=== PATIENT | female | born 1935 | race Caucasian/White ===

== ENCOUNTER 2016-07-20 10:04 | Inpatient (IN) | payer MEDICARE, BC ==
[2016-07-20 07:41] VITALS: BMI 24.4
[2016-07-20] MEDS ORDERED: SODIUM CHLORIDE 0.9% 500 ML IV STA (10:17)
[2016-07-20] MEDS: SODIUM CHLORIDE 0.9% 1,000 ML IV STA (10:20)
--- NOTE | 2016-07-20 10:25 | ED ---
Recheck HPI - General Chief Complaint: Recheck/Abnormal Lab/Rx Time Seen by Provider: 07/20/16 10:04 Source: patient, family, RN/MD, RN notes reviewed Mode of arrival: wheelchair Limitations: no limitations - History of Present Illness Initial Comments: This is a 81-year-old female who had a breast biopsy done this morning. Apparently she experienced some bleeding afterwards. The staff at the outpatient surgery portion of the hospital cannot get the bleeding controlled she was brought to the emergency department for further evaluation. Patient does have a small amount was infiltrated rate breast site. There is some evidence of a hematoma below the wound site. Patient does appear somewhat pale. She has any chest pain or shortness of breath at this time she apparently did have some pain during the procedure. - Related Data Home Medications Medication Instructions Recorded Confirmed Pravastatin Sodium [Pravachol] 20 mg PO HS 11/15/15 07/20/16 Biotin 5 mg PO DAILY 07/20/16 07/20/16 Calcium Citrate/Vitamin D3 1 tab PO DAILY 07/20/16 07/20/16 [Calcitrate + Vit D Caplet] Evening [place] Oil 500 mg PO DAILY 07/20/16 07/20/16 Allergies Allergy/AdvReac Type Severity Reaction Status Date / Time codeine Allergy Unknown Verified 07/20/16 10:26 Iodinated Contrast Media - Allergy TONGUE Verified 07/20/16 10:26 Oral and SWELLING [Iodinated Contrast Media - IV Dye] Review of Systems ROS Statement: Those systems with pertinent positive or pertinent negative responses have been documented in the HPI. ROS Other: All systems not noted in ROS Statement are negative. Past Medical History Past Medical History: Hyperlipidemia, Thyroid Disorder History of Any Multi-Drug Resistant Organisms: None Reported Past Surgical History: Joint Replacement Additional Past Surgical History / Comment(s): bilateral knee replacement, thyroid biopsy,RT breast biopsy age 29, RIght breast biopsy 07/20/16 Past Anesthesia/Blood Transfusion Reactions: No Reported Reaction Past Psychological History: No Psychological Hx Reported Smoking Status: Never smoker Past Alcohol Use History: None Reported Past Drug Use History: None Reported General Exam - General Exam Comments Initial Comments: This is a well up well-nourished awake alert oriented 3 female Limitations: no limitations General appearance: alert, in no apparent distress Head exam: Present: atraumatic, normocephalic, normal inspection Eye exam: Present: normal appearance, PERRL, EOMI. Absent: scleral icterus, conjunctival injection, periorbital swelling ENT exam: Present: normal exam, mucous membranes moist Neck exam: Present: normal inspection. Absent: tenderness, meningismus, lymphadenopathy Respiratory exam: Present: normal lung sounds bilaterally, other (The right breast does have a biopsy site in her right upper medial quadrant some evidence of a hematoma below. Bleeding is controlled with pressure at this time. The breast appears to be without any active bleeding.). Absent: respiratory distress, wheezes, rales, rhonchi, stridor Cardiovascular Exam: Present: regular rate, normal rhythm, normal heart sounds. Absent: systolic murmur, diastolic murmur, rubs, gallop, clicks GI/Abdominal exam: Present: soft, normal bowel sounds. Absent: distended, tenderness, guarding, rebound, rigid Extremities exam: Present: normal inspection, full ROM, normal capillary refill. Absent: tenderness, pedal edema, joint swelling, calf tenderness Back exam: Present: normal inspection Neurological exam: Present: alert, oriented X3, CN II-XII intact Psychiatric exam: Present: normal affect, anxious Skin exam: Present: warm, dry, pallor. Absent: rash Course Vital Signs 07/20/16 07/20/16 07/20/16 07:30 10:10 10:28 Temperature 98.5 F 98.5 F Pulse Rate 92 79 Pulse Rate [ 65 Right Sitting] Respiratory 16 16 16 Rate Blood Pressure 99/55 108/57 Blood Pressure 157/80 [Right Arm Sitting] O2 Sat by Pulse 93 L 97 Oximetry 07/20/16 07/20/16 11:17 12:13 Temperature Pulse Rate 80 81 Pulse Rate [ Right Sitting] Respiratory 18 18 Rate Blood Pressure 95/49 93/84 Blood Pressure [Right Arm Sitting] O2 Sat by Pulse 99 98 Oximetry Medical Decision Making - Medical Decision Making Patient was reevaluated on multiple occasions. She is feeling improved her blood pressure is improved. Repeat CBC does show a decrease in hemoglobin. Patient will be admitted for observation and reevaluation of hemoglobin. The hematoma appears was stabilized in the right breast. The upper quadrants are soft rhythm original presentation - Lab Data Result diagrams: 07/20/16 12:57 07/20/16 10:10 Lab Results 07/20/16 07/20/16 07/20/16 Range/Units 10:10 10:10 10:10 WBC 10.3 (3.8-10.6) k/uL RBC 4.04 (3.80-5.40) m/uL Hgb 11.9 (11.4-16.0) gm/dL Hct 35.7 (34.0-46.0) % MCV 88.3 (80.0-100.0) fL MCH 29.4 (25.0-35.0) pg MCHC 33.3 (31.0-37.0) g/dL RDW 14.0 (11.5-15.5) % Plt Count 267 (150-450) k/uL Neutrophils % 50 % Lymphocytes % 40 % Monocytes % 5 % Eosinophils % 2 % Basophils % 0 % Neutrophils # 5.2 (1.3-7.7) k/uL Lymphocytes # 4.2 (1.0-4.8) k/uL Monocytes # 0.5 (0-1.0) k/uL Eosinophils # 0.2 (0-0.7) k/uL Basophils # 0.0 (0-0.2) k/uL Sodium 141 (137-145) mmol/L Potassium 4.1 (3.5-5.1) mmol/L Chloride 106 (98-107) mmol/L Carbon Dioxide 25 (22-30) mmol/L Anion Gap 10 mmol/L BUN 15 (7-17) mg/dL Creatinine 0.59 (0.52-1.04) mg/dL Est GFR (MDRD) Af Amer >60 (>60 ml/min/1.73 sqM) Est GFR (MDRD) Non-Af >60 (>60 ml/min/1.73 sqM) Glucose 149 H (74-99) mg/dL POC Glucose (mg/dL) (75-99) mg/dL POC Glu Sql Ssis Developer ID Calcium 8.9 (8.4-10.2) mg/dL Magnesium 1.9 (1.6-2.3) mg/dL Total Bilirubin 0.5 (0.2-1.3) mg/dL AST 22 (14-36) U/L ALT 20 (9-52) U/L Alkaline Phosphatase 55 (38-126) U/L Total Protein 5.5 L (6.3-8.2) g/dL Albumin 3.4 L (3.5-5.0) g/dL Blood Type O Positive Blood Type Recheck No Antibody Screen NEGATIVE Spec Expiration Date 07/23/2016230907/20/16 07/20/16 Range/Units 10:24 12:57 WBC 14.1 H (3.8-10.6) k/uL RBC 3.45 L (3.80-5.40) m/uL Hgb 10.1 L (11.4-16.0) gm/dL Hct 30.4 L (34.0-46.0) % MCV 88.3 (80.0-100.0) fL MCH 29.4 (25.0-35.0) pg MCHC 33.3 (31.0-37.0) g/dL RDW 13.7 (11.5-15.5) % Plt Count 208 (150-450) k/uL Neutrophils % 89 % Lymphocytes % 7 % Monocytes % 3 % Eosinophils % 1 % Basophils % 0 % Neutrophils # 12.6 H (1.3-7.7) k/uL Lymphocytes # 1.0 (1.0-4.8) k/uL Monocytes # 0.4 (0-1.0) k/uL Eosinophils # 0.1 (0-0.7) k/uL Basophils # 0.0 (0-0.2) k/uL Sodium (137-145) mmol/L Potassium (3.5-5.1) mmol/L Chloride (98-107) mmol/L Carbon Dioxide (22-30) mmol/L Anion Gap mmol/L BUN (7-17) mg/dL Creatinine (0.52-1.04) mg/dL Est GFR (MDRD) Af Amer (>60 ml/min/1.73 sqM) Est GFR (MDRD) Non-Af (>60 ml/min/1.73 sqM) Glucose (74-99) mg/dL POC Glucose (mg/dL) 169 H (75-99) mg/dL POC Glu Sql Ssis Developer ID Christos Livingston Calcium (8.4-10.2) mg/dL Magnesium (1.6-2.3) mg/dL Total Bilirubin (0.2-1.3) mg/dL AST (14-36) U/L ALT (9-52) U/L Alkaline Phosphatase (38-126) U/L Total Protein (6.3-8.2) g/dL Albumin (3.5-5.0) g/dL Blood Type Blood Type Recheck Antibody Screen Spec Expiration Date - EKG Data -: EKG Interpreted by Me EKG shows normal: sinus rhythm (EKG shows a sinus rhythm of 71. 160 QRS duration 84 QT/QTC of 46/441 low-voltage QRS st-t wave changes.) - Radiology Data Radiology results: report reviewed (I did review the imaging and reports no acute findings.), image reviewed Disposition Clinical Impression: Postoperative bleeding from incision, Hypotensive episode, Anemia Disposition: ADMITTED IP TO THIS [facility] Condition: Stable Instructions: Core Needle Breast Biopsy (DC) Referrals: None,Stated [Primary Care Provider] - 1-2 days
[2016-07-20 10:31] LABS: Basophils % (A) 0 %; CH 29.4; CHCM 33.4; Eosinophils # (A) 0.2 k/uL (0-0.7); Eosinophils % (A) 2 %; HCT 35.7 % (34.0-46.0); HGB 11.9 gm/dL (11.4-16.0); Luc # (Auto) 0.23; Luc % (Auto) 2; Lymphocytes # (A) 4.2 k/uL (1.0-4.8); Lymphocytes % (A) 40 %; MCH 29.4 pg (25.0-35.0); MCHC 33.3 g/dL (31.0-37.0); MCV 88.3 fL (80.0-100.0); Mean Platelet Volume 7.8; Monocytes # (A) 0.5 k/uL (0-1.0); Monocytes % (A) 5 %; Neutrophils # (A) 5.2 k/uL (1.3-7.7); Neutrophils % (A) 50 %; RBC 4.04 m/uL (3.80-5.40); WBC 10.3 k/uL (3.8-10.6); WBC (Perox) 11.04
[2016-07-20 10:39] LABS: Glucose,Whole Blood 169 mg/dL (75-99)
--- NOTE | 2016-07-20 10:41 | MM ---
EXAMINATION TYPE: MG stereo VAD BX addl RT DATE OF EXAM: 07/20/2016 COMPARISON: Mammogram dated 06/09/2016 CLINICAL HISTORY: Abnormal mammogram TECHNIQUE: Stereotactic guided core biopsy of right breast at 2 sites. FINDINGS: The procedure of stereotactic guided core biopsy was explained to the patient. Benefits, alternatives, and risks were discussed by the surgeon who performed the procedure. And informed consent was then obtained. [facility]. Procedure performed by the surgeon surgeon, Dr. Armaan Barrera . A vacuum assisted biopsy gun was used to obtain multiple core samples. The patient tolerated the procedure well. Postprocedural hematoma noted on the mammogram. The patient was kept in the radiology department for short stay after the procedure. The surgeon was notified of the complications from the biopsy. Targeted calcifications are identified in specimen mammogram. Post biopsy mammogram shows the clip to appear in satisfactory position relative to the targeted area of concern on the preprocedure images. IMPRESSION: SUCCESSFUL, UNCOMPLICATED STEREOTACTIC GUIDED CORE BIOPSY OF AREA OF CONCERN IN THE right BREAST, FULL PATHOLOGY RESULTS TO FOLLOW. Pathology Results: Benign A. BREAST, RIGHT, AXILLARY, STEREOTACTIC CORE BIOPSY: BENIGN BREAST PARENCHYMA WITH PROMINENT ADIPOSE TISSUE DEMONSTRATING FIBROCYSTIC CHANGE (FOCAL STROMAL FIBROSIS, CYST FORMATION AND ADENOSIS), PENDING X-RAY OF SPECIMEN BLOCKS AND ADDITIONAL SECTIONS. B. BREAST, RIGHT MEDIAL, STEREOTACTIC CORE BIOPSY: BENIGN BREAST PARENCHYMA WITH PROMINENT ADIPOSE TISSUE DEMONSTRATING FIBROCYSTIC CHANGE (STROMAL FIBROSIS AND FIBROADENOMATOUS HYPERPLASIA), PENDING X-RAY BLOCKS AND ADDITIONAL SECTIONS. ADDENDUM REPORT A. BREAST, RIGHT AXILLARY, STEREOTACTIC CORE BIOPSY: BENIGN BREAST PARENCHYMA WITH PROMINENT ADIPOSE TISSUE DEMONSTRATING FIBROCYSTIC CHANGE (FOCAL STROMA FIBROSIS, CYST FORMATION AND ADENOSIS) AND FIBROADENOMATOUS HYPERPLASIA/ FIBROADENOMA FORMATION WITH HYALINIZATION AND CALCIFICATION. B. BREAST, RIGHT MEDIAL, STEREOTACTIC CORE BIOPSY: BENIGN BREAST PARENCHYMA WITH PROMINENT ADIPOSE TISSUE DEMONSTRATING FIBROCYSTIC CHANGE (STROMAL FIBROSIS AND CYST FORMATION) AND FIBROADENOMATOUS HYPERPLASIA/FIBROADENOMA FORMATION WITH HYALINIZATION AND CALCIFICATIONS. Recommendation Follow up mammogram of the right breast in 6 months. MTDD
[2016-07-20 10:45] LABS: ALT 20 U/L (9-52); AST 22 U/L (14-36); Alkaline Phosphatase 55 U/L (38-126); Anion Gap 10 mmol/L; Blood Urea Nitrogen 15 mg/dL (7-17); Calcium 8.9 mg/dL (8.4-10.2); Carbon Dioxide 25 mmol/L (22-30); Chloride 106 mmol/L (98-107); Glucose 149 mg/dL (74-99); Magnesium 1.9 mg/dL (1.6-2.3); Non-African American GFR(MDRD) >60 (>60 ml/min/1.73 sqM); Potassium 4.1 mmol/L (3.5-5.1); Sodium 141 mmol/L (137-145); Total Bilirubin 0.5 mg/dL (0.2-1.3); Total Protein 5.5 g/dL (6.3-8.2)
[2016-07-20] MEDS ORDERED: fentaNYL (PF) 50 MCG/ML 2 ML AMP IV STA (10:46)
--- NOTE | 2016-07-20 11:05 | P.GSHP ---
<Tati Santiagocarline Goodson - Last Filed: 07/21/16 11:47> History of Present Illness H&P Date: 07/20/16 Chief Complaint: Hematoma after breast biopsy done on right breast 81-year-old female who presented on elective basis on July 20 to undergo stereotactic guided core biopsy of the right breast at 2 sites. Postprocedure patient developed a significant hematoma involving the right breast. The axillary site soft Steri-Strips in place no drainage. The puncture site to the right anterior chest wall no active bleeding noted. Pressure was held with an Brody wrap dressing to the chest wall the right breast biopsy was being done for an abnormal mammogram that was done on Jun 09 2016 hemoglobin 11.9 postprocedure patients being seen in the emergency room waiting for a bed in the observation unit. Patient had a fluid bolus given to her for systolic blood pressure in the 80s. Patient is awake and alert and answering questions appropriately patient's denying shortness breath dizziness lightheadedness or chest pain when questioning. The right breast purple ecchymotic firm to touch with positive tenderness no active bleeding from the puncture sites. Patient has a past medical history hyperlipidemia, and thyroid nodules that have been noncancerous per biopsy per patient report. Patient had a dobutamine stress echo done on November 2015 it was a negative dobutamine stress test and a negative dobutamine stress echo the echocardiogram showed left ventricular systolic function normal with an EF between 60 and 65% with no valvular heart disease Patient's past surgical history bilateral knee replacement, thyroid biopsy, right breast biopsy age 29 - Review of Systems Comment: Essentially unremarkable except as mentioned in the present illness Past Medical History Past Medical History: Hyperlipidemia, Thyroid Disorder History of Any Multi-Drug Resistant Organisms: None Reported Past Surgical History: Joint Replacement Additional Past Surgical History / Comment(s): bilateral knee replacement, thyroid biopsy,RT breast biopsy age 29, RIght breast biopsy 07/20/16 Past Anesthesia/Blood Transfusion Reactions: No Reported Reaction Past Psychological History: No Psychological Hx Reported Smoking Status: Never smoker Past Alcohol Use History: None Reported Past Drug Use History: None Reported - Past Family History Brother(s) Family Medical History: Diabetes Mellitus Additional Family Medical History / Comment(s): mother had leukemia and brother had oral cancer Medications and Allergies Home Medications Medication Instructions Recorded Confirmed Type Pravastatin Sodium [Pravachol] 20 mg PO HS 11/15/15 07/20/16 History Biotin 5 mg PO DAILY 07/20/16 07/20/16 History Calcium Citrate/Vitamin D3 1 tab PO DAILY 07/20/16 07/20/16 History [Calcitrate + Vit D Caplet] Evening [place] Oil 500 mg PO DAILY 07/20/16 07/20/16 History Allergies Allergy/AdvReac Type Severity Reaction Status Date / Time codeine Allergy Unknown Verified 07/20/16 10:26 Iodinated Contrast Media - Allergy TONGUE Verified 07/20/16 10:26 Oral and SWELLING [Iodinated Contrast Media - IV Dye] Surgical - Exam Vital Signs Temp Pulse Resp BP 98.5 F 65 16 157/80 07/20/16 07:30 07/20/16 07:30 07/20/16 07:30 07/20/16 07:30 GENERAL APPEARANCE: 81-year-old female patient is alert, oriented 3, in no acute distress. Pleasant cooperative denying chest pain dizziness lightheadedness does report having soreness in the right breast VITAL SIGNS: Reviewed HEENT: Head is normocephalic and atraumatic. Pupils are equal and reactive. The nares are patent. Oropharynx is clear without lesions. NECK: Supple without lymphadenopathy. Traches midline . Chest Brody wrap to the chest wall 2 puncture sites right axillary Steri- Strips in place dry no drainage no active bleed puncture site to the right anterior chest wall at the noon position no drainage no active bleed the breast on the right hematoma purple ecchymotic plus tenderness HEART: S1, S2. Regular rate and rhythm. No murmur noted denying chest pain LUNGS: No crackles or wheezes are heard. Adequate air entry bilaterally no shortness of breath or conversation or rest ABDOMEN: Soft, nontender, nondistended with good bowel sounds. No peritoneal signs. No palpable organomegaly or masses. EXTREMITIES: Normal skin color and turgor. No cyanosis, rash, ulceration, clubbing or edema. Radial pedal pulses are 2/4 bilaterally. NEUROLOGICAL: No focal deficits. Strength and sensation are grossly intact. Results - Labs 07/21/16 07:04 07/20/16 10:10 Abnormal Lab Results - Last 24 Hours (Table) 07/20/16 07/20/16 Range/Units 10:10 10:24 Glucose 149 H (74-99) mg/dL POC Glucose (mg/dL) 169 H (75-99) mg/dL Total Protein 5.5 L (6.3-8.2) g/dL Albumin 3.4 L (3.5-5.0) g/dL Diabetes panel 07/20/16 Range/Units 10:10 Sodium 141 (137-145) mmol/L Potassium 4.1 (3.5-5.1) mmol/L Chloride 106 (98-107) mmol/L Carbon Dioxide 25 (22-30) mmol/L BUN 15 (7-17) mg/dL Creatinine 0.59 (0.52-1.04) mg/dL Glucose 149 H (74-99) mg/dL Calcium 8.9 (8.4-10.2) mg/dL AST 22 (14-36) U/L ALT 20 (9-52) U/L Alkaline Phosphatase 55 (38-126) U/L Total Protein 5.5 L (6.3-8.2) g/dL Albumin 3.4 L (3.5-5.0) g/dL Calcium panel 07/20/16 Range/Units 10:10 Calcium 8.9 (8.4-10.2) mg/dL Albumin 3.4 L (3.5-5.0) g/dL Pituitary panel 07/20/16 Range/Units 10:10 Sodium 141 (137-145) mmol/L Potassium 4.1 (3.5-5.1) mmol/L Chloride 106 (98-107) mmol/L Carbon Dioxide 25 (22-30) mmol/L BUN 15 (7-17) mg/dL Creatinine 0.59 (0.52-1.04) mg/dL Glucose 149 H (74-99) mg/dL Calcium 8.9 (8.4-10.2) mg/dL Adrenal panel 07/20/16 Range/Units 10:10 Sodium 141 (137-145) mmol/L Potassium 4.1 (3.5-5.1) mmol/L Chloride 106 (98-107) mmol/L Carbon Dioxide 25 (22-30) mmol/L BUN 15 (7-17) mg/dL Creatinine 0.59 (0.52-1.04) mg/dL Glucose 149 H (74-99) mg/dL Calcium 8.9 (8.4-10.2) mg/dL Total Bilirubin 0.5 (0.2-1.3) mg/dL AST 22 (14-36) U/L ALT 20 (9-52) U/L Alkaline Phosphatase 55 (38-126) U/L Total Protein 5.5 L (6.3-8.2) g/dL Albumin 3.4 L (3.5-5.0) g/dL Assessment and Plan Plan: Impression Status post right breast biopsy developed hematoma right breast Hyperlipidemia History of a thyroid disorder Present on admission Hypotensive necessitating fluid bolus systolic blood pressure in the 80s Echocardiogram November 2015 preserved LV function EF 55-60% Plan Continue IV fluid at 100 and hour and reevaluate Admitted for further monitoring Repeat labs in the morning Resume home meds as appropriate Pain control DVT and GI prophylaxis Will follow hemoglobin attempt keep greater than 8.5 Continue the Brody wrap to the chest wall The above dictated assessment and findings were discussed with dr armaan Fraga and the plan of care have been dictated as directed. Sabra Santiago nurse practitioner acting as a scribe for Dr. Simeon <Oxana Horner - Last Filed: 07/23/16 08:59> History of Present Illness This is an addendum to the history and physical of Sabra Santiago by Dr. Armaan Barrera. The patient was seen in the emergency room by myself immediately following the event and evaluated. She was noted to have a stable hematoma of the right breast. This was believed to have occurred from the second stereotactic biopsy site. There was no evidence of active external bleeding or expansion of the hematoma. She was to be admitted for close surveillance to assure that she remained hemodynamically stable and the hematoma did not increase in size. A pressure dressing was applied. The case was discussed with the patient as well as her son. Surgical - Exam Vital Signs Temp Pulse Resp BP 98.5 F 65 16 157/80 07/20/16 07:30 07/20/16 07:30 07/20/16 07:30 07/20/16 07:30 Results - Labs 07/23/16 06:51 07/20/16 10:10 Abnormal Lab Results - Last 24 Hours (Table) 07/22/16 07/23/16 Range/Units 12:40 06:51 RBC 2.65 L 2.67 L (3.80-5.40) m/uL Hgb 7.8 L 7.9 L (11.4-16.0) gm/dL Hct 23.9 L 24.0 L (34.0-46.0) %
[2016-07-20] MEDS: SODIUM CHLORIDE 0.9% 1,000 ML IV SCH ×2 (11:58→22:04)
--- NOTE | 2016-07-20 12:13 | XR ---
EXAMINATION TYPE: XR chest 1V portable DATE OF EXAM: 07/20/2016 COMPARISON: Chest x-ray and CTA chest November 14, 2015. HISTORY: Abnormal findings during right breast biopsy. TECHNIQUE: Single AP portable frontal upright view of the chest is obtained. FINDINGS: There is chronic parenchymal change with left basilar linear scarring or atelectasis redem onstrated. No new suspicious focal airspace opacity, pleural effusion, or pneumothorax is seen bilate rally. The cardiac silhouette size is stable and within normal limits with atherosclerotic and ectati c thoracic aorta. The osseous structures are demineralized. Underlying scoliotic curvature is prese nt. Multilevel spurring in the spine is seen. IMPRESSION: Chronic changes with left basilar linear scarring or atelectasis, no new suspicious foca l infiltrate is seen.
--- NOTE | 2016-07-20 12:20 | PCN ---
DATE OF PROCEDURE: PREPROCEDURE DIAGNOSIS: Mammographic abnormality 2 sites in the right breast. DESCRIPTION OF PROCEDURE: The first site was in the right axillary area. She was placed on the stereo table and the area was localized. The skin was prepped and 1% lidocaine was used to anesthetize the area of concern. Needle was driven to correct coordinates. Multiple core biopsies were obtained. A clip identified as [id number] was placed, 6 cores were obtained. Radiograph of the core revealed the area of calcifications had been obtained. Following this, the patient was repositioned and a second site in the medial aspect of the breast was localized. A 1% lidocaine was used to anesthetize the area of the breast after it had been prepped in a sterile fashion. Needle was driven to the correct coordinates and multiple core biopsies were obtained. A clip [id number] was placed. Radiograph of the specimen revealed the area of concern had been sampled. The patient tolerated the procedure in stable condition. Specimen sent to Pathology.
[2016-07-20 13:09] LABS: Basophils % (A) 0 %; CH 29.9; Eosinophils # (A) 0.1 k/uL (0-0.7); Eosinophils % (A) 1 %; HCT 30.4 % (34.0-46.0); HDW 2.59; HGB 10.1 gm/dL (11.4-16.0); Luc # (Auto) 0.09; Luc % (Auto) 1; Lymphocytes % (A) 7 %; MCH 29.4 pg (25.0-35.0); MCHC 33.3 g/dL (31.0-37.0); MCV 88.3 fL (80.0-100.0); Mean Platelet Volume 7.8; Monocytes # (A) 0.4 k/uL (0-1.0); Monocytes % (A) 3 %; Neutrophils # (A) 12.6 k/uL (1.3-7.7); Neutrophils % (A) 89 %; RBC 3.45 m/uL (3.80-5.40); RDW 13.7 % (11.5-15.5); WBC 14.1 k/uL (3.8-10.6); WBC (Perox) 14.53
[2016-07-20] MEDS ORDERED: NALOXONE 0.4 MG/ML 1 ML VIAL IV PRN (13:31)
[2016-07-20 13:36] LABS: Creatine Kinase 47 U/L (30-135)
[2016-07-20 13:49] LABS: Creatine Kinase MB 0.9 ng/mL (0.0-2.4); Troponin I <0.012 ng/mL (0.000-0.034)
[2016-07-20 16:29] LABS: Basophils % (A) 0 %; CH 29.5; CHCM 32.8; Eosinophils % (A) 0 %; HCT 31.5 % (34.0-46.0); HDW 2.42; HGB 10.3 gm/dL (11.4-16.0); Luc # (Auto) 0.08; Luc % (Auto) 1; Lymphocytes # (A) 0.9 k/uL (1.0-4.8); Lymphocytes % (A) 6 %; MCH 29.5 pg (25.0-35.0); MCHC 32.6 g/dL (31.0-37.0); MCV 90.4 fL (80.0-100.0); Monocytes # (A) 0.5 k/uL (0-1.0); Monocytes % (A) 4 %; Neutrophils # (A) 12.9 k/uL (1.3-7.7); Neutrophils % (A) 90 %; RBC 3.48 m/uL (3.80-5.40); RDW 14.1 % (11.5-15.5); WBC 14.4 k/uL (3.8-10.6); WBC (Perox) 14.48
[2016-07-20 16:50] LABS: Creatine Kinase 35 U/L (30-135)
[2016-07-20 17:03] LABS: Creatine Kinase MB 0.8 ng/mL (0.0-2.4); Troponin I <0.012 ng/mL (0.000-0.034)
[2016-07-20] MEDS: FAMOTIDINE 20 MG TAB PO SCH (20:49)
[2016-07-20] MEDS: ACETAMINOPHEN TAB 325 MG TAB PO PRN (22:00)
[2016-07-21 07:43] LABS: CH 29.6; CHCM 32.6; HCT 25.5 % (34.0-46.0); HDW 2.44; MCH 29.2 pg (25.0-35.0); MCHC 32.1 g/dL (31.0-37.0); MCV 91.1 fL (80.0-100.0); Mean Platelet Volume 8.3; RDW 14.5 % (11.5-15.5); WBC 7.5 k/uL (3.8-10.6)
[2016-07-21 07:48] LABS: HGB 8.2 gm/dL (11.4-16.0)
[2016-07-21] MEDS: FAMOTIDINE 20 MG TAB PO SCH ×3 (07:54→21:36)
[2016-07-21] MEDS: SODIUM CHLORIDE 0.9% 1,000 ML IV SCH ×2 (07:54→11:59)
[2016-07-21] MEDS: ACETAMINOPHEN TAB 325 MG TAB PO PRN ×3 (08:10→22:37)
--- NOTE | 2016-07-21 11:52 | P.PN ---
Subjective A pleasant 81-year-old female being seen and examined. Patient is up ambulating from the bed to the bathroom denies dizziness lightheadedness or shortness of breath. Patient is postop July 20 breast biopsy right breast developed a hematoma after the procedure. Currently the patient has an Brody wrap to the chest. Axillary site Steri-Strips in place the right anterior chest wall purple ecchymotic bruising less swelling noted this morning. Hemoglobin this morning is 8.2. Hemoglobin on admission was 11.9. Patient states the right breast is tender. Objective - Vital Signs Vital signs: Vital Signs Temp 97.9 F 07/21/16 07:00 Pulse 91 07/21/16 07:00 Resp 18 07/21/16 07:59 BP 104/57 07/21/16 07:00 Pulse Ox 96 07/21/16 07:00 Intake & Output 07/20/16 07/21/16 07/21/16 18:59 06:59 18:59 Intake Total 840 Balance 840 Weight 62.596 kg Intake: Intake, IV Titration 600 Amount Sodium Chloride 0.9% 1, 600 000 ml @ 75 mls/hr IV . [id number] STA Rx#:[id number] Oral 240 Other: # Voids 3 - Exam Physical exam 81-year-old female pleasant cooperative oriented 3 appears in no acute distress Lungs essentially clear adequate air movement on room air Heart S1-S2 audible and regular denying chest pain Abdomen soft nontender reports no nausea vomiting no difficulty in urinating no frequent stooling Chest the right breast purple ecchymotic bruising extending up into the right axillary area dressing scant amount of drainage noted Brody wrap to the chest wall in place Extremities no edema noted - Labs CBC & Chem 7: 07/21/16 07:04 07/20/16 10:10 Labs: Abnormal Lab Results - Last 24 Hours (Table) 07/20/16 07/20/16 07/21/16 Range/Units 12:57 16:00 07:04 WBC 14.1 H 14.4 H (3.8-10.6) k/uL RBC 3.45 L 3.48 L 2.80 L (3.80-5.40) m/uL Hgb 10.1 L 10.3 L 8.2 L D (11.4-16.0) gm/dL Hct 30.4 L 31.5 L 25.5 L (34.0-46.0) % Neutrophils # 12.6 H 12.9 H (1.3-7.7) k/uL Lymphocytes # 0.9 L (1.0-4.8) k/uL Assessment and Plan Plan: Impression Status post right breast biopsy developed hematoma right breast Hyperlipidemia History of a thyroid disorder Present on admission Hypotensive necessitating fluid bolus systolic blood pressure in the 80s Echocardiogram November 2015 preserved LV function EF 55-60% Postop acute blood loss anemia suspect due to hematoma right breast hemoglobin 8.2 Plan Continue IV fluid at 100 and hour and reevaluate Admitted for further monitoring Repeat labs in the morning Resume home meds as appropriate Pain control DVT and GI prophylaxis Will follow hemoglobin attempt keep greater than 8.5 Continue the Brody wrap to the chest wall The above dictated assessment and findings were discussed with dr Dr. Lewis covering for Dr. Simeon Impression and the plan of care have been dictated as directed. Sabra Santiago nurse practitioner acting as a scribe fo Dr. Lewis covering for tara Simeon Time with Patient: Greater than 30
[2016-07-21 18:42] LABS: CH 29.6; CHCM 33.4; HCT 22.4 % (34.0-46.0); HDW 2.59; HGB 7.5 gm/dL (11.4-16.0); MCH 29.8 pg (25.0-35.0); MCHC 33.5 g/dL (31.0-37.0); MCV 89.1 fL (80.0-100.0); RBC 2.52 m/uL (3.80-5.40); WBC 7.5 k/uL (3.8-10.6)
[2016-07-21] MEDS: PRAVASTATIN SODIUM 20 MG TAB PO SCH (21:36)
[2016-07-22] MEDS: SODIUM CHLORIDE 0.9% 1,000 ML IV SCH (00:30)
[2016-07-22] MEDS: ACETAMINOPHEN TAB 325 MG TAB PO PRN ×3 (05:31→21:43)
[2016-07-22 07:10] LABS: Basophils % (A) 0 %; CH 29.6; CHCM 33.9; Eosinophils # (A) 0.1 k/uL (0-0.7); Eosinophils % (A) 2 %; HCT 21.4 % (34.0-46.0); HDW 2.62; HGB 7.2 gm/dL (11.4-16.0); Luc % (Auto) 2; Lymphocytes # (A) 1.2 k/uL (1.0-4.8); Lymphocytes % (A) 21 %; MCH 29.5 pg (25.0-35.0); MCHC 33.7 g/dL (31.0-37.0); MCV 87.7 fL (80.0-100.0); Mean Platelet Volume 7.8; Monocytes # (A) 0.3 k/uL (0-1.0); Monocytes % (A) 6 %; Neutrophils # (A) 3.8 k/uL (1.3-7.7); Neutrophils % (A) 69 %; RBC 2.44 m/uL (3.80-5.40); RDW 13.8 % (11.5-15.5); WBC 5.6 k/uL (3.8-10.6); WBC (Perox) 6.08
[2016-07-22] MEDS: FAMOTIDINE 20 MG TAB PO SCH ×2 (08:26→21:44)
[2016-07-22 11:07] LABS: Total Iron Binding Capacity 267 ug/dL (265-497)
[2016-07-22 12:55] LABS: CH 29.6; HCT 23.9 % (34.0-46.0); HDW 2.56; HGB 7.8 gm/dL (11.4-16.0); MCH 29.6 pg (25.0-35.0); MCHC 32.8 g/dL (31.0-37.0); MCV 90.3 fL (80.0-100.0); Mean Platelet Volume 8.3; RBC 2.65 m/uL (3.80-5.40); RDW 14.3 % (11.5-15.5); WBC 6.6 k/uL (3.8-10.6)
[2016-07-22] MEDS: PRAVASTATIN SODIUM 20 MG TAB PO SCH (21:44)
--- NOTE | 2016-07-22 22:58 | P.PN ---
Subjective Principal diagnosis: Right breast hematoma status post stereotactic biopsy The patient is an 81-year-old female who presented with acute blood loss anemia as well as hematoma of the right breast following stereotactic biopsy. Since admission, she reports intermittent "pins and needles sensation" along the nipple which was controlled with Tylenol. She has been wearing a compression dressing for several days. Her hemoglobin has dropped from over 10 down to 7.2 despite morning. I had the opportunity to speak to her daughter over the phone. Her daughter has communicated her concerns regarding the patient's discharge home including risk of rebleed. Her hemoglobin is now improving up to a hemoglobin of 7.8. The patient has asked several questions regarding minimal lifting activity and a compression bra. She is eager to go home however she is following the recommendations of her adopted daughter who is a critical care nurse. Objective - Vital Signs Vital signs: Vital Signs Temp 98.8 F 07/22/16 15:00 Pulse 97 07/22/16 16:00 Resp 16 07/22/16 16:00 BP 142/64 07/22/16 15:00 Pulse Ox 93 L 07/22/16 15:00 Intake & Output 07/22/16 07/22/16 07/23/16 06:59 18:59 06:59 Intake Total 700 400 Balance 700 400 Intake: IV 550 Sodium Chloride 0.9% 1, 550 000 ml @ 50 mls/hr IV . Q20H CLAIRE Rx#:[id number] Intake, IV Titration 400 Amount Sodium Chloride 0.9% 1, 400 000 ml @ 50 mls/hr IV . Q20H CLAIRE Rx#:[id number] Oral 150 Other: # Voids 2 2 - Exam GENERAL: Well developed and in no acute distress. Pleasant. HEENT: No sclera icterus. Extraocular movements grossly intact. Moist buccal mucosa. Head is atraumatic, normocephalic. Hears conversational speech. No nasal drainage. CHEST: Non-labored respirations and equal bilateral excursions. BREAST: Compression garment along chest wall was discontinued. Right breast with moderate ecchymosis including extending along the right forearm. No active drainage is identified. Puncture sites without active drainage. CARDIOVASCULAR: Regular rate and rhythm. Palpable 2+ radial pulses. ABDOMEN: Soft, nontender. Nondistended. MUSCULOSKELETAL: No clubbing, cyanosis or edema. NEUROLOGIC: No focal or lateralizing signs. PSYCH: Appropriate affect. Alert and oriented to person, place and time. - Labs CBC & Chem 7: 07/22/16 12:40 07/20/16 10:10 Labs: Abnormal Lab Results - Last 24 Hours (Table) 07/22/16 07/22/16 Range/Units 06:40 12:40 RBC 2.44 L 2.65 L (3.80-5.40) m/uL Hgb 7.2 L 7.8 L (11.4-16.0) gm/dL Hct 21.4 L 23.9 L (34.0-46.0) % Plt Count 145 L (150-450) k/uL Assessment and Plan (1) Acute blood loss anemia Status: Acute (2) Hemorrhage postprocedure Status: Acute (3) Breast hematoma Status: Acute Plan: 1. I have recommended wearing a bra for support. 2. I have asked the patient to discuss with her daughter regarding overall care plan. As her hemoglobin had improved, we will recheck her hemoglobin after her compression dressing is discontinued. 3. Diet as tolerated. 4. Iron indices were obtained and within normal limits. 5. I have gone over iron rich foods including foods which will help with pain. 6. Potential discharge home after hemoglobin is stable. 7. No need for blood transfusion as the patient has been hemodynamically stable. 8. Agree with inpatient hospitalization which has been over 2 nights. Discussion of care plan was performed for greater than 45 minutes. Time with Patient: Greater than 30
[2016-07-23] MEDS: SODIUM CHLORIDE 0.9% 1,000 ML IV SCH (00:48)
[2016-07-23 07:46] LABS: Basophils % (A) 0 %; CH 29.3; CHCM 32.8; Eosinophils # (A) 0.1 k/uL (0-0.7); Eosinophils % (A) 2 %; HDW 2.59; HGB 7.9 gm/dL (11.4-16.0); Luc # (Auto) 0.08; Luc % (Auto) 2; Lymphocytes # (A) 1.2 k/uL (1.0-4.8); Lymphocytes % (A) 23 %; MCH 29.8 pg (25.0-35.0); MCHC 33.2 g/dL (31.0-37.0); MCV 89.8 fL (80.0-100.0); Mean Platelet Volume 8.1; Monocytes # (A) 0.3 k/uL (0-1.0); Monocytes % (A) 6 %; Neutrophils # (A) 3.5 k/uL (1.3-7.7); Neutrophils % (A) 66 %; RBC 2.67 m/uL (3.80-5.40); RDW 14.4 % (11.5-15.5); WBC 5.3 k/uL (3.8-10.6); WBC (Perox) 5.65
[2016-07-23] MEDS: FAMOTIDINE 20 MG TAB PO SCH ×2 (08:41→08:43)
[2016-07-23] MEDS: ACETAMINOPHEN TAB 325 MG TAB PO PRN (08:44)
[2016-07-23 09:30] VITALS: RESP 18; TEMP 97.8
[2016-07-23 14:08] VITALS: BP 134/60; PULSE 74
--- NOTE | 2016-07-23 21:29 | P.PN ---
Subjective Principal diagnosis: Right breast hematoma status post stereotactic biopsy The patient is an 81-year-old female who presented with acute blood loss anemia as well as hematoma of the right breast following stereotactic biopsy. She reports no new increased pain. No reports of hypertension. She is tolerating diet. She is hemodynamically stable. Objective - Vital Signs Vital signs: Vital Signs Temp 97.8 F 07/23/16 14:08 Pulse 74 07/23/16 14:08 Resp 18 07/23/16 14:08 BP 134/60 07/23/16 14:08 Pulse Ox 97 07/23/16 14:08 Intake & Output 07/22/16 07/23/16 07/23/16 18:59 06:59 18:59 Intake Total 664 051 6228 Balance 750 613 5428 Intake: Intake, IV Titration 400 350 Amount Sodium Chloride 0.9% 1, 400 350 000 ml @ 50 mls/hr IV . Q20H CLAIRE Rx#:[id number] Oral 360 1120 Other: Voiding Method Toilet Toilet # Voids 2 2 2 - Exam GENERAL: Well developed and in no acute distress. Pleasant. HEENT: No sclera icterus. Extraocular movements grossly intact. Moist buccal mucosa. Head is atraumatic, normocephalic. Hears conversational speech. No nasal drainage. CHEST: Non-labored respirations and equal bilateral excursions. CARDIOVASCULAR: Regular rate and rhythm. Palpable 2+ radial pulses. ABDOMEN: Soft, nontender. Nondistended. MUSCULOSKELETAL: No clubbing, cyanosis or edema. NEUROLOGIC: No focal or lateralizing signs. PSYCH: Appropriate affect. Alert and oriented to person, place and time. - Labs CBC & Chem 7: 07/23/16 06:51 07/20/16 10:10 Labs: Abnormal Lab Results - Last 24 Hours (Table) 07/23/16 Range/Units 06:51 RBC 2.67 L (3.80-5.40) m/uL Hgb 7.9 L (11.4-16.0) gm/dL Hct 24.0 L (34.0-46.0) % Assessment and Plan (1) Acute blood loss anemia Status: Acute (2) Hemorrhage postprocedure Status: Acute (3) Breast hematoma Status: Acute Plan: 1. Patient hemoglobin has improved. 2. May be discharged home. 3. Follow-up with Dr. Luann Barerra in the office. I am rounding on behalf of Dr. Armaan Barrera.
--- NOTE | 2016-07-23 21:32 | P.DS ---
Providers Date of admission: 07/22/16 15:33 Expected date of discharge: 07/23/16 Attending physician: Oxana Horner Primary care physician: Stated None - Discharge Diagnosis(es) (1) Acute blood loss anemia Status: Acute (2) Hemorrhage postprocedure Status: Acute (3) Breast hematoma Status: Acute Hospital Course: The patient is a 81-year-old female who initially presented for a stereotactic breast biopsy of the right breast. She had developed acute postprocedure hemorrhage with acute blood loss anemia. A compression dressing was placed. She was treated conservatively without need of blood transfusions or surgery. Prior to discharge, her right breast hematoma had stabilized. Compression dressing was discontinued. Discharge instructions were reviewed in detail. Procedures: Stereotactic right breast biopsy x 2, performed by Dr. Horner Patient Condition at Discharge: Stable Plan - Discharge Summary New Discharge Prescriptions: No Action Pravastatin Sodium [Pravachol] 20 mg PO HS Evening [place] Oil 500 mg PO DAILY Calcium Citrate/Vitamin D3 [Calcitrate + Vit D Caplet] 1 tab PO DAILY Biotin 5 mg PO DAILY Discharge Medication List Pravastatin Sodium [Pravachol] 20 mg PO HS 11/15/15 [History] Biotin 5 mg PO DAILY 07/20/16 [History] Calcium Citrate/Vitamin D3 [Calcitrate + Vit D Caplet] 1 tab PO DAILY 07/20/16 [ History] Evening [place] Oil 500 mg PO DAILY 07/20/16 [History] Follow up Appointment(s)/Referral(s): Oxana Horner MD [STAFF PHYSICIAN] - 07/27/16 (Call to confirm time) Jacquie Nichols MD [STAFF PHYSICIAN] - 07/25/16 (Call to confirm ) None,Stated [Primary Care Provider] - 1-2 days Patient Instructions/Handouts: Core Needle Breast Biopsy (DC) Activity/Diet/Wound Care/Special Instructions: Wear bra at all times including with resting. Please notify the office for any problems. No lifting over 4 pounds otherwise half-gallon of milk with the right arm. May shower. No bath tub soaks. Discharge Disposition: HOME SELF-CARE
== END 2016-07-23 16:50 | disposition home or self-care (01) | DRG 812 ==
LOC: EC 10:04 → 5MS5E 13:31 → OBSVTOIN 07-22 15:33
PROVIDERS: ADMIT Surgery; ATTEND Surgery
PROC: 0HBT3ZX Excision of Right Breast, Percutaneous Approach, Diagnostic (ICD-10-PCS; principal; 2016-07-20)
DX: D62 Acute posthemorrhagic anemia (principal); I95.9 Hypotension, unspecified; L76.32 Postprocedural hematoma of skin and subcutaneous tissue following other procedure; R92.8 Other abnormal and inconclusive findings on diagnostic imaging of breast; E78.5 Hyperlipidemia, unspecified; E04.2 Nontoxic multinodular goiter; Z96.653 Presence of artificial knee joint, bilateral; Z79.899 Other long term (current) drug therapy; Z88.5 Allergy status to narcotic agent; Z91.041 Radiographic dye allergy status; Y84.8 Other medical procedures as the cause of abnormal reaction of the patient, or of later complication, without mention of misadventure at the time of the procedure
CPT/HCPCS: 19082; 36415; 71010; 80053; 82550; 82553; 82728; 83540; 83550; 83735; 84484; 85025; 85027; 86850; 86900; 86901; 88305; 93005; 96361; 96374; 99284

== ENCOUNTER → 2016-07-27 | Outpatient (CLI) | payer MEDICARE, BC ==
[2016-07-27 13:35] LABS: Anisocytosis Slight; CH 29.5; CHCM 32.7; HCT 30.4 % (34.0-46.0); HDW 2.99; HGB 10.4 gm/dL (11.4-16.0); MCHC 34.1 g/dL (31.0-37.0); MCV 90.9 fL (80.0-100.0); Mean Platelet Volume 7.8; RBC 3.34 m/uL (3.80-5.40); RDW 16.2 % (11.5-15.5); WBC 8.8 k/uL (3.8-10.6)
== END ==
LOC: LABWHC1 13:08
PROVIDERS: ATTEND Surgery
DX: N64.89 Other specified disorders of breast (principal)
CPT/HCPCS: 36415; 85027

== ENCOUNTER → 2016-12-25 | Outpatient (CLI) | payer MEDICARE, BC ==
--- NOTE | 2016-12-25 12:04 | USB ---
Reason for exam: clinical finding. History: Benign MG stereo VAD BX addl RT of the right breast, July 20, 2016. Benign MG stereo VAD BX RT of the right breast, July 20, 2016. Indicated problem(s): palpable abnormality in the right breast. Physical Findings: Nurse Summary: right breast nipple inversion/indention, right breast upper quadrant palpable 4 x 7cm, left breast prominant thickening upper quadrant (nurse ts). US Breast RT Technologist: Sharonda Sanderson Right breast ultrasound includes all four quadrants, the retroareolar region and axilla. Finding demonstrates a 5.3 x 2.3 x 3.9cm mixed lesion at 12-1 o'clock, fluid collection. The sonograph reports that this is firm and painful. These results were verbally communicated with the patient and result sheet given to the patient on 12/25/16. ASSESSMENT: Benign, BI-RAD 2 RECOMMENDATION: Surgical consultation of the right breast. (for possible hematoma excision) Called with mammographic findings and has scheduled an appointment for the patient for 01/04/17 at 10:[address] Horner. PRELIMINARY REPORT CALLED AND FAXED TO DR. HORNER ON 12/25/16. Follow-up diagnostic mammogram of both breasts in 6 months. Back on schedule for June 2017.
== END | disposition home or self-care (01) ==
LOC: RADUSWWP 10:16
PROVIDERS: ATTEND Surgery
DX: T81.89XD Other complications of procedures, not elsewhere classified, subsequent encounter (principal)

== ENCOUNTER → 2017-08-09 | Outpatient (CLI) | payer MEDICARE, BC ==
[2017-08-09 10:56] VITALS: BP 152/74; PULSE 81; TEMP 98.4; BMI 24.7
--- NOTE | 2017-08-09 11:17 | P.GSHP ---
History of Present Illness H&P Date: 08/09/17 The patient is an 82-year-old white female status post right breast stereotactic core biopsy July 20, 2016. The patient developed a hematoma following the procedure and was hospitalized for 4 days. The hematoma stabolized with pressure and the patient did not require any blood transfusions. The pathology was benign. The patient has some persistent fullness at the area of the prior hematoma although this has decreased in size dramatically. The patient continues to have some nipple inversion related to the hematoma development. The patient has occasional discomfort at this site. The patient has no masses or nodules of concern in the left breast. The patient with no nipple inversion on the left. family history: 1. cousin: breast cancer 2. brother: cancer of the mouth menarche: 13 : no two adopted children menopause: late 40's BCP: none hormones: stopped two years ago was them for a "long" time on them for about 30 years, unsre of the type social history: smoke: none alcohol: occasional drugs: none ROS: HEENT: wears glasses, tinnitus lungs: none heart: none GI: none : kidney stones - Constitutional Comment: night sweats - EENT Eyes: bilateral as per HPI Ears: bilateral: tinnitus (only happened one time not now) Ears, nose, mouth and throat: Denies headache, Denies sore throat - Breasts Breasts: bilateral: as per HPI - Cardiovascular Comment: intermittent midsternal chest pain, will follow with DR. Smith Cardiovascular: Denies shortness of breath - Respiratory Respiratory: Denies cough, Denies 7 - Gastrointestinal Gastrointestinal: Reports as per HPI, Denies abdominal pain, Denies diarrhea, Denies nausea, Denies vomiting - Genitourinary (Female) Genitourinary: Reports kidney stones - Menstruation Menstruation: Reports postmenopausal - Musculoskeletal Comment: arthritis, osetoarthritis - Integumentary Integumentary: Denies pruritus, Denies rash - Neurological Neurological: Denies numbness, Denies weakness - Psychiatric Psychiatric: Denies anxiety, Denies depression - Endocrine Endocrine: Denies fatigue, Denies weight change - Hematologic/Lymphatic Comment: none - Allergic/Immunologic Comment: none Past Medical History Past Medical History: Hyperlipidemia, Thyroid Disorder Additional Past Medical History / Comment(s): 07/20/2016 post breast biopsy hematoma History of Any Multi-Drug Resistant Organisms: None Reported Past Surgical History: Joint Replacement Additional Past Surgical History / Comment(s): bilateral knee replacement, thyroid biopsy,RT breast biopsy age 29, RIght breast biopsy 07/20/16 Past Anesthesia/Blood Transfusion Reactions: No Reported Reaction Past Psychological History: No Psychological Hx Reported Smoking Status: Never smoker Past Alcohol Use History: None Reported Past Drug Use History: None Reported - Past Family History Brother(s) Family Medical History: Diabetes Mellitus Additional Family Medical History / Comment(s): mother had leukemia and brother had oral cancer Medications and Allergies Home Medications Medication Instructions Recorded Confirmed Type Pravastatin Sodium [Pravachol] 20 mg PO HS 11/15/15 08/09/17 History Calcium Citrate/Vitamin D3 1 tab PO QAM 07/20/16 08/09/17 History [Calcitrate + Vit D Caplet] Cholecalciferol [Vitamin D3] 1,000 unit PO QAM 08/09/17 08/09/17 History Turmeric Root Extract [Turmeric] 500 mg PO QAM 08/09/17 08/09/17 History Allergies Allergy/AdvReac Type Severity Reaction Status Date / Time codeine Allergy Unknown Verified 08/09/17 10:53 Iodinated Contrast- Oral and Allergy TONGUE Verified 08/09/17 10:53 IV Dye SWELLING [Iodinated Contrast Media - IV Dye] Surgical - Exam - General well developed, well nourished, no distress - Eyes normal ocular movement, no icteric - ENT no hearing loss, no congestion - Neck no masses, trachea midline - Respiratory normal expansion, normal respiratory effort, clear to auscultation - Cardiovascular Rhythm: regular Heart Sounds: normal: S1, S2 - Abdomen Abdomen: soft, non tender, no guarding, no rigid, no rebound - Neurologic no disoriented, no combative - Musculoskeletal normal gait - Psychiatric oriented to time, oriented to person, oriented to place, speech is normal, memory intact Breast examination: Right breast: Persistent fullness in the area of prior hematoma, aproximately 5 cm by 4 cm in size no dominant masses or nodules otherwise of concern right nipple remains inverted Right axilla: Negative Left breast: No dominant masses or nodules of concern a multi-positional exam Left axilla: No adenopathy of concern Assessment and Plan Assessment: Impression/plan: 1. Fibrocystic changes bilaterally of the breast 2. Resolving hematoma right breast status post stereo biopsy 1 year ago; persistent changes at biopsy site 3. Persistent nipple inversion after development of hematoma 4. Osteoarthritis Plan: 1. Repeat bilateral mammogram 2. Medical management of osteoarthritis We have discussed that the nipple inversion may be permanent without surgical intervention. The patient is going to obtain a mammogram and if this does not show anything of concern we will most likely continue to follow the breast conservatively. cc: Dr. Sam Smith
--- NOTE | 2017-08-15 09:57 | MM ---
Reason for exam: additional evaluation requested from prior study. Last mammogram was performed 1 year and 2 months ago. History: Patient is postmenopausal. Family history of breast cancer in cousin at age 60. Benign MG stereo VAD BX addl RT of the right breast, July 20, 2016. Benign MG stereo VAD BX RT of the right breast, July 20, 2016. Complex hematoma formation post stereotactic biopsy, required hospitalization. MG 3D Diag Mammo W/Cad ARPIT Bilateral CC and MLO view(s) were taken. Technologist: Tamara Hidalgo, RT (R)(M) Prior study comparison: December 25, 2016, right breast US breast RT. June 09, 2016, mammogram, performed at [facility]. June 06, 2016, mammogram, performed at [facility]. March 24, 2015, mammogram, performed at [facility]. January 15, 2014, mammogram, performed at [facility]. There are scattered fibroglandular densities. Previous mammotome biopsy in the right breast x 3. There is chronic nodularity in the left breast. New pronounced nipple retraction on the right and pectoralis retraction as well. New large central focal asymmetry appears to be a platelike thickening. This all may relate to sequela of the patient's large hematoma post biopsy last year. Ultrasound recommended. ASSESSMENT: Incomplete: need additional imaging evaluation, BI-RAD 0 RECOMMENDATION: Ultrasound of the right breast.
== END | disposition home or self-care (01) ==
LOC: WWCWWP 10:34
PROVIDERS: ATTEND Surgery
DX: N63.10 Unspecified lump in the right breast, unspecified quadrant (principal); R92.8 Other abnormal and inconclusive findings on diagnostic imaging of breast; N63.20 Unspecified lump in the left breast, unspecified quadrant
CPT/HCPCS: 77066; G0279; 77062

== ENCOUNTER → 2017-08-16 | Outpatient (CLI) | payer MEDICARE, BC ==
--- NOTE | 2017-08-16 15:10 | USB ---
Reason for exam: additional evaluation requested from abnormal screening. History: Patient is postmenopausal. Family history of breast cancer in cousin at age 60. Benign MG stereo VAD BX addl RT of the right breast, July 20, 2016. Benign MG stereo VAD BX RT of the right breast, July 20, 2016. Complex hematoma formation post stereotactic biopsy, required hospitalization. US Breast RT Technologist: Tamara Hidalgo, RT (R)(M) Right complete breast ultrasound includes all four quadrants, the retroareolar region and axilla. Finding demonstrates shadowed area, no cystic or solid lesion seen. These results were verbally communicated with the patient and result sheet given to the patient on 08/16/17. ASSESSMENT: Negative, BI-RAD 1 RECOMMENDATION: Routine screening mammogram of both breasts in 1 year. Manage patient on a clinical basis.
== END | disposition home or self-care (01) ==
LOC: RADUSWWP 09:05
PROVIDERS: ATTEND Surgery
DX: R92.8 Other abnormal and inconclusive findings on diagnostic imaging of breast (principal)

== ENCOUNTER 2018-09-06 16:34 | Emergency (ER) | payer MEDICARE, BC ==
[2018-09-06 16:49] VITALS: TEMP 97.8
[2018-09-06 17:45] LABS: Basophils % (A) 1 %; Eosinophils # (A) 0.2 k/uL (0-0.7); Eosinophils % (A) 2 %; HCT 39.1 % (34.0-46.0); HGB 13.1 gm/dL (11.4-16.0); Lymphocytes # (A) 2.3 k/uL (1.0-4.8); Lymphocytes % (A) 26 %; MCH 29.7 pg (25.0-35.0); MCHC 33.5 g/dL (31.0-37.0); MCV 88.8 fL (80.0-100.0); Monocytes # (A) 0.6 k/uL (0-1.0); Monocytes % (A) 6 %; Neutrophils # (A) 5.6 k/uL (1.3-7.7); Neutrophils % (A) 63 %; Platelet Count 227 k/uL (150-450); RDW 14.6 % (11.5-15.5); WBC 8.8 k/uL (3.8-10.6)
[2018-09-06 17:49] LABS: INR 0.9 (<1.2)
[2018-09-06 17:55] LABS: ALT 24 U/L (9-52); AST 28 U/L (14-36); African American GFR (CKD) >90 (>60 ml/min/1.73 sqM); Albumin 4.2 g/dL (3.5-5.0); Alkaline Phosphatase 68 U/L (38-126); Anion Gap 9 mmol/L; Blood Urea Nitrogen 17 mg/dL (7-17); Carbon Dioxide 27 mmol/L (22-30); Chloride 104 mmol/L (98-107); Glucose 84 mg/dL (74-99); Potassium 3.9 mmol/L (3.5-5.1); Sodium 140 mmol/L (137-145); Total Bilirubin 0.3 mg/dL (0.2-1.3); Total Protein 6.6 g/dL (6.3-8.2)
--- NOTE | 2018-09-06 18:03 | CT ---
EXAMINATION TYPE: CT abdomen pelvis wo con DATE OF EXAM: 09/06/2018 COMPARISON: None HISTORY: low back and abdominal pain. hx of stones. no injury. CT DLP: 404.4 mGycm Automated exposure control for dose reduction was used. TECHNIQUE: Helical acquisition of images was performed from the lung bases through the pelvis. FINDINGS: LOWER THORAX: Linear probable postsurgical changes of the right breast. Enlargement of the main pulmo nary artery suggests pulmonary arterial hypertension. Extensive atherosclerosis of the coronary arter ies. Dependent subsegmental atelectasis. LIVER/GB: Unremarkable unenhanced morphology. No radiopaque calculi in the gallbladder. ADRENALS: Thickening of the adrenal glands bilaterally although they maintain a normal adreniform sha pe and therefore this finding is likely related to adrenal gland hyperplasia. SPLEEN: Small splenule seen adjacent to the mary[place] igloo spleen. PANCREAS: No pancreatic ductal dilatation. Fat filled lesion near the pancreatic head and descending duodenum may represent a duodenal diverticulum and lipoma. KIDNEYS: No evidence of nephrolithiasis nor hydronephrosis. No calculi in the urinary bladder. FREE AIR: No free air is visualized ADENOPATHY: No greater than 1 cm short axis lymph node in the abdomen or pelvis. OSSEOUS STRUCTURES: Mild femoral acetabular arthropathy and moderate multilevel degenerative changes of the spine which will be further discussed in the CT spine dictation of the same date. BOWEL: There are numerous sigmoid diverticula and long segment thickening of the sigmoid colon that could relate to incomplete distention. Colon is suboptimally evaluated without contrast and secondary to moderate colonic fecal stasis. Low-lying loops of small bowel are seen within the pelvis. No dila meera large or small bowel are seen. Fat filled periumbilical hernia is present but very small. OTHER: Dense of atherosclerosis of the abdominal aorta and its branches. IMPRESSION: 1. NO NEPHROLITHIASIS OR HYDRONEPHROSIS. URINARY BLADDER IS INCOMPLETELY DISTENDED AND SUBOPTIMALLY E VALUATED ON CT. 2. LONG SEGMENT BOWEL WALL THICKENING OF THE SIGMOID COLON COULD RELATE TO MILD ACUTE UNCOMPLICATED C OLITIS OR BE SEQUELA OF CHRONIC SIGMOID DIVERTICULOSIS. NO ACUTE DIVERTICULOSIS IS SEEN. 3. MULTIPLE INCIDENTAL FINDINGS DETAILED ABOVE
--- NOTE | 2018-09-06 18:08 | CT ---
EXAMINATION TYPE: CT lumbar spine wo con DATE OF EXAM: 09/06/2018 5:55 PM COMPARISON: CT abdomen pelvis of the same date HISTORY: low back and abdominal pain. hx of stones. no injury. CT DLP: 404.4 mGycm Automated exposure control for dose reduction was used. TECHNIQUE: Unenhanced CT of the lumbar spine was performed. Bone and soft tissue window settings are submitted as well as coronal and sagittal reconstructions. FINDINGS: The lumbar spine vertebral bodies maintain normal vertebral body heights and alignment. Mod erate to severe multilevel degenerative disc disease is seen with bridging anterior osteophytes of th e visualized lower thoracic spine suggesting diffuse idiopathic skeletal hyperostosis. Pars interarti cularis defects are seen at L5-S1 without anterolisthesis. The lumbar spine vertebral bodies maintain normal vertebral body heights. Discogenic endplate changes are seen at L1-L2. There is an S-shaped s coliotic curvature of the visualized thoracolumbar spine. This slightly limits evaluation of the lumb ar spine neural foramen. Spinal canal is limited on CT and could be further evaluated with MRI. Gener alized paraspinal muscular atrophy predominates inferiorly. The visualized portions of the abdomen an d pelvis are discussed in the CT abdomen and pelvis dictation of the same date. L1-L2: There is at least a broad-based disc bulge and facet arthropathy resulting in moderate left ne ural foraminal narrowing. Spinal canal and right neural foramen appear patent. L2-L3: Facet arthropathy and a broad-based disc bulge are seen resulting in moderate left and mild ri ght neural foraminal narrowing without gross evidence of spinal canal stenosis. L3-L4: There appears to be a broad-based disc bulge, ligamentum flavum buckling, and facet arthropath y contributing to at least moderate bilateral neural foraminal narrowing and mild spinal canal stenos is. L4-L5: There appears to be a right eccentric broad-based disc bulge and facet arthropathy as well as ligamentum flavum buckling creating severe right and mild left neural foraminal narrowing and moderat e spinal canal stenosis. L5-S1: There is a small broad-based disc bulge and facet arthropathy contributing to mild bilateral n eural foraminal narrowing. No acute fracture is seen of the lumbar spine. Nonspecific punctate sclerotic lesion of the sacrum is noted. IMPRESSION: 1. No acute fracture or malalignment of the lumbar spine. 2. Moderate to severe multilevel degenerative disc disease of the lumbosacral spine as detailed above with multilevel spinal canal stenosis and variable degrees of neural foraminal narrowing most severe at L4-L5 on the right. 3. S-shaped scoliotic curvature of the thoracolumbar spine. 4. Bilateral pars interarticularis defects incidentally seen at L5-S1. 5. Findings in the lumbar spine suggest diffuse idiopathic skeletal hyperostosis.
[2018-09-06 18:38] LABS: Appearance,Urine Clear (Clear); Bilirubin,Urine Negative (Negative); Blood,Urine Trace (Negative); Color,Urine Yellow; Glucose,Urine (UA) Negative (Negative); Ketones,Urine Negative (Negative); Leukocyte Esterase,Urine Negative (Negative); Nitrite,Urine Negative (Negative); Protein,Urine Negative (Negative); RBC,Urine 2 /hpf (0-5); Specific Gravity,Urine 1.013 (1.001-1.035); Squamous Epithelial Cell,Urine <1 /hpf (0-4); Urobilinogen,Urine <2.0 mg/dL (<2.0)
[2018-09-06] MEDS ORDERED: LIDOCAINE 5% PATCH TOPICAL STA (19:22)
--- NOTE | 2018-09-06 19:32 | ED ---
Abdominal Pain HPI - General Chief Complaint: Abdominal Pain Stated Complaint: abdominal & back pain Time Seen by Provider: 09/06/18 16:58 Source: patient Mode of arrival: ambulatory Limitations: no limitations - History of Present Illness Initial Comments: The patient is an 83 year old female who presents to the emergency room with complaint of right-sided flank pain. She describes it as a sharp shooting sensation which radiates around to her right lower quadrant. It is worse with movement and better with rest. She denies any trauma. She was seen in her primary care office for the pain. Dr. Sanchez did give her anti-inflammatories and ranitidine for which she has been taking. She denies that it is improving her symptoms. The pain has become worse over the past several days. Dr. Sanchez was scheduling her for a CT of her abdomen and pelvis on Sunday however she called him today and he referred her to the ER for imaging. She denies any associated nausea or vomiting. She denies any diarrhea, constipation, melanotic stools or hematochezia. She denies any dysuria, hematuria difficult voiding. Does report a history of kidney stones. She denies any chest pain or shortness of breath. She denies fevers or chills. There are no other alleviating, precipitating or modifying factors - Related Data Home Medications Medication Instructions Recorded Confirmed Pravastatin Sodium [Pravachol] 20 mg PO HS 11/15/15 09/06/18 Cholecalciferol [Vitamin D3] 1,000 unit PO DAILY 08/09/17 09/06/18 Estradiol 0.5 mg PO HS 09/06/18 09/06/18 Hydrochlorothiazide [Hydrodiuril] 12.5 mg PO DAILY 09/06/18 09/06/18 Progesterone, Micronized 100 mg PO HS 09/06/18 09/06/18 [Progesterone] Ranitidine HCl [Zantac] 150 mg PO BID 09/06/18 09/06/18 Sertraline HCl [Zoloft] 25 mg PO DAILY 09/06/18 09/06/18 Previous Rx's Medication Instructions Recorded Lidocaine 5% Patch [Lidoderm] 1 patch TOPICAL DAILY #30 patch 09/06/18 Allergies Allergy/AdvReac Type Severity Reaction Status Date / Time codeine Allergy Unknown Verified 09/06/18 18:29 Iodinated Contrast- Oral and Allergy TONGUE Verified 09/06/18 18:29 IV Dye SWELLING [Iodinated Contrast Media - IV Dye] Review of Systems ROS Statement: Those systems with pertinent positive or pertinent negative responses have been documented in the HPI. ROS Other: All systems not noted in ROS Statement are negative. Past Medical History Past Medical History: Hyperlipidemia, Thyroid Disorder Additional Past Medical History / Comment(s): 07/20/2016 post breast biopsy hematoma History of Any Multi-Drug Resistant Organisms: None Reported Past Surgical History: Joint Replacement Additional Past Surgical History / Comment(s): bilateral knee replacement, thyroid biopsy,RT breast biopsy age 29, RIght breast biopsy 07/20/16, L wrist Past Anesthesia/Blood Transfusion Reactions: No Reported Reaction Past Psychological History: No Psychological Hx Reported Smoking Status: Never smoker Past Alcohol Use History: None Reported Past Drug Use History: None Reported - Past Family History Brother(s) Family Medical History: Diabetes Mellitus Additional Family Medical History / Comment(s): mother had leukemia and brother had oral cancer General Exam Limitations: no limitations General appearance: alert, in no apparent distress Head exam: Present: atraumatic, normocephalic, normal inspection Eye exam: Present: normal appearance, PERRL, EOMI. Absent: scleral icterus, conjunctival injection, periorbital swelling ENT exam: Present: normal exam, mucous membranes moist Neck exam: Present: normal inspection. Absent: tenderness, meningismus, lymphadenopathy Respiratory exam: Present: normal lung sounds bilaterally. Absent: respiratory distress, wheezes, rales, rhonchi, stridor Cardiovascular Exam: Present: regular rate, normal rhythm, normal heart sounds. Absent: systolic murmur, diastolic murmur, rubs, gallop, clicks GI/Abdominal exam: Present: soft, normal bowel sounds. Absent: distended, tenderness, guarding, rebound, rigid Extremities exam: Present: normal inspection, full ROM, normal capillary refill. Absent: tenderness, pedal edema, joint swelling, calf tenderness Back exam: Present: normal inspection, tenderness (right paraspinal tenderness T10-L4. Negative straight leg raise. 5/5 muscle strength in her bilaterally lower extremities. No step offs or deformities appreciated) Neurological exam: Present: alert, oriented X3, CN II-XII intact Psychiatric exam: Present: normal affect, normal mood Skin exam: Present: warm, dry, intact, normal color. Absent: rash Course Vital Signs 09/06/18 09/06/18 16:44 19:46 Temperature 97.8 F Pulse Rate 69 80 Respiratory 18 16 Rate Blood Pressure 139/60 135/74 O2 Sat by Pulse 94 L Oximetry Medical Decision Making - Medical Decision Making Upon arrival the patient was placed in room 23. She is hooked up to pulse ox and cardiac monitoring. A thorough history and physical exam was performed. A 12-lead EKG was performed which demonstrated no acute findings. She is ALLERGIC to contrast and therefore her studies must be performed without contrast. She states that she does have an anaphylactic reaction with tongue swelling. I did recommend laboratory studies and a urinalysis. I sent the patient for a CT for abdomen and pelvis as well as her lumbar spine. Upon return results are discussed patient. I discussed diagnosis, differential and treatment options. I did offer her something for pain control however she refused. She states that she has Tylenol Motrin at home that she can take. I did offer her a Lidoderm patch for which she did agree to. The patient will be discharged home and is to follow-up with Dr. Smith for further treatment. She is currently in physical therapy for this pain. She has any new or worsening symptoms she should return to the emergency department. I did provide the patient with a prescription for Lidoderm patches. The patient was then discharged home ambulatory in stable condition - Differential Diagnosis musculoskeletal pain, nephrolithiasis, pyelo - Lab Data Result diagrams: 09/06/18 17:19 09/06/18 17:19 Lab Results 09/06/18 09/06/18 09/06/18 Range/Units 17:19 17:19 17:19 WBC 8.8 (3.8-10.6) k/uL RBC 4.40 (3.80-5.40) m/uL Hgb 13.1 (11.4-16.0) gm/dL Hct 39.1 (34.0-46.0) % MCV 88.8 (80.0-100.0) fL MCH 29.7 (25.0-35.0) pg MCHC 33.5 (31.0-37.0) g/dL RDW 14.6 (11.5-15.5) % Plt Count 227 (150-450) k/uL Neutrophils % 63 % Lymphocytes % 26 % Monocytes % 6 % Eosinophils % 2 % Basophils % 1 % Neutrophils # 5.6 (1.3-7.7) k/uL Lymphocytes # 2.3 (1.0-4.8) k/uL Monocytes # 0.6 (0-1.0) k/uL Eosinophils # 0.2 (0-0.7) k/uL Basophils # 0.0 (0-0.2) k/uL PT (9.0-12.0) sec INR (<1.2) Sodium 140 (137-145) mmol/L Potassium 3.9 (3.5-5.1) mmol/L Chloride 104 (98-107) mmol/L Carbon Dioxide 27 (22-30) mmol/L Anion Gap 9 mmol/L BUN 17 (7-17) mg/dL Creatinine 0.54 (0.52-1.04) mg/dL Est GFR (CKD-EPI)AfAm >90 (>60 ml/min/1.73 sqM) Est GFR (CKD-EPI)NonAf 87 (>60 ml/min/1.73 sqM) Glucose 84 (74-99) mg/dL Plasma Lactic Acid Shakir 1.1 (0.7-2.0) mmol/L Calcium 10.0 (8.4-10.2) mg/dL Total Bilirubin 0.3 (0.2-1.3) mg/dL AST 28 (14-36) U/L ALT 24 (9-52) U/L Alkaline Phosphatase 68 (38-126) U/L Total Protein 6.6 (6.3-8.2) g/dL Albumin 4.2 (3.5-5.0) g/dL Lipase 171 (23-300) U/L Urine Color Urine Appearance (Clear) Urine pH (5.0-8.0) Ur Specific [place] (1.001-1.035) Urine Protein (Negative) Urine Glucose (UA) (Negative) Urine Ketones (Negative) Urine Blood (Negative) Urine Nitrite (Negative) Urine Bilirubin (Negative) Urine Urobilinogen (<2.0) mg/dL Ur Leukocyte Esterase (Negative) Urine RBC (0-5) /hpf Urine WBC (0-5) /hpf Ur Squamous Epith Cells (0-4) /hpf 09/06/18 09/06/18 Range/Units 17:19 18:15 WBC (3.8-10.6) k/uL RBC (3.80-5.40) m/uL Hgb (11.4-16.0) gm/dL Hct (34.0-46.0) % MCV (80.0-100.0) fL MCH (25.0-35.0) pg MCHC (31.0-37.0) g/dL RDW (11.5-15.5) % Plt Count (150-450) k/uL Neutrophils % % Lymphocytes % % Monocytes % % Eosinophils % % Basophils % % Neutrophils # (1.3-7.7) k/uL Lymphocytes # (1.0-4.8) k/uL Monocytes # (0-1.0) k/uL Eosinophils # (0-0.7) k/uL Basophils # (0-0.2) k/uL PT 10.0 (9.0-12.0) sec INR 0.9 (<1.2) Sodium (137-145) mmol/L Potassium (3.5-5.1) mmol/L Chloride (98-107) mmol/L Carbon Dioxide (22-30) mmol/L Anion Gap mmol/L BUN (7-17) mg/dL Creatinine (0.52-1.04) mg/dL Est GFR (CKD-EPI)AfAm (>60 ml/min/1.73 sqM) Est GFR (CKD-EPI)NonAf (>60 ml/min/1.73 sqM) Glucose (74-99) mg/dL Plasma Lactic Acid Shakir (0.7-2.0) mmol/L Calcium (8.4-10.2) mg/dL Total Bilirubin (0.2-1.3) mg/dL AST (14-36) U/L ALT (9-52) U/L Alkaline Phosphatase (38-126) U/L Total Protein (6.3-8.2) g/dL Albumin (3.5-5.0) g/dL Lipase (23-300) U/L Urine Color Yellow Urine Appearance Clear (Clear) Urine pH 6.0 (5.0-8.0) Ur Specific [place] 1.013 (1.001-1.035) Urine Protein Negative (Negative) Urine Glucose (UA) Negative (Negative) Urine Ketones Negative (Negative) Urine Blood Trace H (Negative) Urine Nitrite Negative (Negative) Urine Bilirubin Negative (Negative) Urine Urobilinogen <2.0 (<2.0) mg/dL Ur Leukocyte Esterase Negative (Negative) Urine RBC 2 (0-5) /hpf Urine WBC 1 (0-5) /hpf Ur Squamous Epith Cells <1 (0-4) /hpf - EKG Data EKG Comments: EKG demonstrates a normal sinus rhythm with a ventricular rate of 62. IA interval 160. QRS 142. QTC of 450. There is an interventricular block. No acute ST segment elevations or depressions concerning for ischemic changes Disposition Clinical Impression: Flank pain, Lumbar radiculopathy, right, Diverticulosis Disposition: HOME SELF-CARE Instructions (If sedation given, give patient instructions): Lumbar Radiculopa thy (ED) Additional Instructions: Please follow-up with Dr. Smith for further evaluation. Return to the emergency department for any new or worsening symptoms Prescriptions: Lidocaine 5% Patch [Lidoderm] 1 patch TOPICAL DAILY #30 patch Is patient prescribed a controlled substance at d/c from ED?: No Referrals: Jaspal Sanchez MD [Primary Care Provider] - 1-2 days Time of Disposition: 19:32
[2018-09-06 19:47] VITALS: BP 135/74; PULSE 80; RESP 16
== END 2018-09-06 19:46 | disposition home or self-care (01) ==
LOC: EC 16:34
DX: M54.16 Radiculopathy, lumbar region (principal); K57.30 Diverticulosis of large intestine without perforation or abscess without bleeding; E78.5 Hyperlipidemia, unspecified; Z91.041 Radiographic dye allergy status; Z88.5 Allergy status to narcotic agent; Z79.890 Hormone replacement therapy; Z79.899 Other long term (current) drug therapy; Z87.442 Personal history of urinary calculi; Z53.29 Procedure and treatment not carried out because of patient's decision for other reasons
CPT/HCPCS: 36415; 72131; 74176; 80053; 81001; 83605; 83690; 85025; 85610; 93005; 99284

== ENCOUNTER → 2018-11-01 | Outpatient (CLI) | payer MEDICARE, BC ==
--- NOTE | 2018-11-03 09:50 | US ---
EXAMINATION TYPE: US thyroid st tissue head/neck DATE OF EXAM: 11/01/2018 COMPARISON: NONE CLINICAL HISTORY: E04.9 enlarged thyroid. GLAND SIZE: Right Lobe: 3.5 x 2.2 x 1.5 cm Overall Parenchyma: heterogenous Left Lobe: 3.4 x 1.2 x 0.7 cm Overall Parenchyma: heterogeneous Isthmus Thickness: 0.3 cm NODULES RIGHT: # of nodules measured on right: 2 1. 0.9 X 0.6 x 0.9 cm anechoic cystic nodule at the mid-medial pole with well-defined margins. This nodule is wider than tall and shows no intranodular vascularity. no prior 2. 1.4 X 1.0 x 1.1 cm hypoechoic solid nodule at the mid pole with well-defined margins. This nodul e is wider than tall and shows intranodular vascularity. no prior LEFT: # of nodules measured on left: 3 1. 0.6 X 0.5 x 0.7 cm hypoechoic solid nodule at the upper pole with well-defined margins. This no dule is wider than tall and shows no intranodular vascularity. no prior 2. 0.9 X 0.7 x 0.6 cm hypoechoic mixed nodule at the lower pole with well-defined margins. This nod ule is wider than tall and shows intranodular vascularity. no prior 3. 0.9 X 0.5 x 0.5 cm hypoechoic mixed nodule at the lower pole. This nodule is wider than tall and shows . no prior ISTHMUS: # of nodules measured in the isthmus: 0 Bilateral neck scanned, no evidence of lymphadenopathy. IMPRESSION: 1. Several bilateral thyroid nodules. One within the mid pole is larger than 1 cm. Consider correlati on with nuclear medicine thyroid scan.
== END | disposition home or self-care (01) ==
LOC: RADUSWWP 15:35
PROVIDERS: ATTEND Obstetrics & Gynecology
DX: E04.2 Nontoxic multinodular goiter (principal)
CPT/HCPCS: 76536

== ENCOUNTER → 2021-02-19 | Outpatient (CLI) | payer MEDICARE, BC ==
[2021-02-19 18:37] LABS: HGB 13.5 g/dL (12.0-15.0); MCH 29.2 pg (27.0-32.0); MCHC 32.1 g/dL (32.0-37.0); MCV 90.9 fL (80.0-97.0); Mean Platelet Volume 11.8 fL (9.5-12.2); Platelet Count 203 X 10*3/uL (140-440); RBC 4.62 X 10*6/uL (4.10-5.20); RDW 12.8 % (11.5-14.5); WBC 7.69 X 10*3/uL (4.50-10.00)
[2021-02-19 23:52] LABS: % Iron Saturation 20.07 (12.00-45.00); Folate, Serum 9.3 ng/mL (4.40-31.00); T4, Free (Free Thyroxine) 1.03 ng/dL (0.800-1.800); Thyroid Peroxidase Antibodies <9.0 U/mL (0.0-33.0)
== END | disposition home or self-care (01) ==
LOC: LABWHC1 09:40
PROVIDERS: ATTEND Internal Medicine Endocrinology, Diabetes & Metabolism
DX: E04.2 Nontoxic multinodular goiter (principal); L65.9 Nonscarring hair loss, unspecified
CPT/HCPCS: 36415; 82306; 82746; 83540; 83550; 84439; 84443; 84480; 85027; 86376

== ENCOUNTER → 2021-09-07 | Outpatient (CLI) | payer MEDICARE, BC ==
--- NOTE | 2021-09-07 17:18 | US ---
EXAMINATION TYPE: US thyroid st tissue head/neck DATE OF EXAM: 09/07/2021 COMPARISON: 11/01/2018 CLINICAL HISTORY: 86-year-old female E04.2 NONTOXIC MULTINODULAR GOITER. TECHNIQUE: Multiple sonographic images of the thyroid gland are obtained. FINDINGS: GLAND SIZE: Right Lobe: 3.8 x 1.7 x 1.3 cm Overall Parenchyma: heterogenous Left Lobe: 3.7 x 1.2 x 1.0 cm Overall Parenchyma: heterogeneous Isthmus Thickness: 0.20 cm NODULES RIGHT: # of nodules measured on right: 2 1. 1.8 X 1.6 x 1.2 cm, mid solid or almost completely solid, hypoechoic TR 4 nodule, which is wide r than tall, with smooth margins, without echogenic foci. Prior size: 1.4 x 1.0 x 1.1 cm 2. 1.3 X 1.0 x 0.5 cm, mid medial, mixed cystic and solid, hypoechoic TR 3 nodule, which is wider t ryan tall, with smooth margins, with echogenic focus. Prior size: 0.9 x 0.6 x 0.9 cm LEFT: # of nodules measured on left: 3 1. 1.1 X 0.9 x 0.8 cm, lower lateral, mixed cystic and solid, TR 3 hypoechoic nodule, which is wid er than tall, with smooth margins, without echogenic foci. Prior size: 0.9 x 0.7 x 0.6 cm (Correlates with #2 measured last exam) 2. 0.8 X 0.7 x 0.5 cm, upper mid, solid or almost completely solid, hypoechoic TR 4 nodule, which i s wider than tall, with smooth margins, without echogenic foci. Prior size: 0.6 x 0.5 x 0.7 cm (Correlates with #1 measured last exam) 3. 0.5 X 0.5 x 0.3 cm, lower mid, cystic or almost completely cystic, hypoechoic nodule, which is w ider than tall, with smooth margins, with echogenic focus. Prior size: 0.9 x 0.5 x 0.5 cm (Correlates with #3 measured last exam) ISTHMUS: # of nodules measured in the isthmus: 1 1. 0.9 x 0.9 x 0.5 cm solid or almost completely solid, hypoechoic TR 4 nodule, which is wider than t all, with smooth margins, without echogenic foci. Prior size: Does not correlate Bilateral neck scanned, a prominent but nonenlarged lymph node along the right side of the neck measu res: 1.0 x 0.7 x 0.4 cm. IMPRESSION: 1. Dominant solid TR4 nodule on the right has increased in size now 1.8 x 1.6 cm (versus 1.4 x 1.1 cm , previously). FNA can be considered. 2. A small 8 x 7 mm TR4 nodule on the left minimally increased from 7 x 6 mm, previously. Follow-up r ecommended. 3. A 9 mm TR4 solid nodule in the isthmus previously not seen. Follow-up recommended. 4. A few TR3 nodules can continue to be followed.
== END | disposition home or self-care (01) ==
LOC: RADUSWWP 10:54
PROVIDERS: ATTEND Internal Medicine Endocrinology, Diabetes & Metabolism
DX: E04.2 Nontoxic multinodular goiter (principal); L65.9 Nonscarring hair loss, unspecified
CPT/HCPCS: 76536; 82306; 84439; 84443; 84481

== ENCOUNTER 2021-11-22 12:53 | Day surgery (SDC) | payer MEDICARE, BC ==
[2021-11-22 13:40] VITALS: RESP 16; TEMP 98
--- NOTE | 2021-11-22 14:41 | US ---
ULTRASOUND GUIDED FNA THYROID BIOPSY: CLINICAL HISTORY: Request for 1.8 cm right thyroid nodule FINDINGS: The procedure was explained to the patient. The risks, complications, benefits and alternatives were discussed and any questions were answered. Informed consent was obtained. Patient was placed supin e on the ultrasound table and prepped and draped in the usual sterile fashion. Utilizing a 25 gauge needle, five passes were made into the requested right thyroid nodule. Patient was stable throughout the procedure. Pathology is pending. All elements of maximal barrier technique were utilized. IMPRESSION: 1. Successful ultrasound guided FNA thyroid biopsy.
[2021-11-22 15:14] VITALS: BP 129/83; PULSE 76
== END 2021-11-22 14:40 | disposition home or self-care (01) ==
LOC: RADPROMAIN 12:53
PROVIDERS: ATTEND Internal Medicine Endocrinology, Diabetes & Metabolism
DX: E04.1 Nontoxic single thyroid nodule (principal)
CPT/HCPCS: 10005; 88173; 88305

== ENCOUNTER → 2022-07-21 | Outpatient (CLI) | payer MEDICARE, BC ==
[2022-07-22 02:23] LABS: T4, Free (Free Thyroxine) 1.3 ng/dL (0.80-1.80)
== END | disposition home or self-care (01) ==
LOC: LABWHC1 15:07
PROVIDERS: ATTEND Internal Medicine Endocrinology, Diabetes & Metabolism
DX: E04.2 Nontoxic multinodular goiter (principal)
CPT/HCPCS: 36415; 84439; 84443; 84480

== ENCOUNTER → 2023-04-11 | Outpatient (CLI) | payer MEDICARE, BC ==
--- NOTE | 2023-04-12 07:47 | US ---
EXAMINATION TYPE: US thyroid st tissue head/neck DATE OF EXAM: 04/11/2023 COMPARISON: FNA right thyroid 11/22/21; thyroid 09/07/21 CLINICAL INDICATION: Female, 88 years old with history of E04.1 NONTOXIC SINGLE THYROID NODULE; Hx ri ght thyroid FNA GLAND SIZE: Right Lobe: 3.5 x 1.8 x 1.2 cm Overall Parenchyma: homogeneous Left Lobe: 3.6 x 1.3 x 1.0 cm Overall Parenchyma: homogeneous Isthmus Thickness: 0.21 cm NODULES RIGHT: # of nodules measured on right: 2 1. 1.1 X 0.6 x 0.7 cm, mid medial, cystic or almost completely cystic, very hypoechoic nodule, whic h is wider than tall, with smooth margins, with echogenic foci. Prior size: 1.3 x 0.5 x 1.0 cm .Moderately Suspicious: FNA if ? 1.5 cm; Follow if ? 1 cm at 1, 2 , 3, and 5 y 2. 1.6 X 1.2 x 1.1 cm, mid mid, solid or almost completely solid, hypoechoic nodule, which is wider than tall, with smooth margins, without echogenic foci. Prior size: 1.8 x 1.2 x 1.6 cm .Moderately Suspicious: FNA if ? 1.5 cm; Follow if ? 1 cm at 1, 2 , 3, and 5 y LEFT: # of nodules measured on left: 3 1. 0.8 X 0.5 x 0.8 cm, upper mid, solid or almost completely solid, hypoechoic nodule, which is wid er than tall, with smooth margins, without echogenic foci. Prior size: 0.8 x 0.5 x 0.7 cm 2. 1.3 X 0.6 x 0.9 cm, mid mid, mixed cystic and solid, very hypoechoic nodule, which is wider alice n tall, with smooth margins, without echogenic foci. Prior size: 1.1 x 0.8 x 0.9 cm 3. 0.5 X 0.3 x 0.6 cm, lower mid, solid or almost completely solid, very hypoechoic nodule, which i s wider than tall, with smooth margins, without echogenic foci. Prior size: 0.5 x 0.3 x 0.5 cm ISTHMUS: # of nodules measured in the isthmus: 0 IMPRESSION: Moderately Suspicious: FNA if ? 1.5 cm; Follow if ? 1 cm at 1, 2, 3, and 5 y 2017 ACR TI-RADS LEVEL: TR4 *Highest TI-RADS level nodule reported
== END | disposition home or self-care (01) ==
LOC: RADUSWWP 14:28
PROVIDERS: ATTEND Internal Medicine Endocrinology, Diabetes & Metabolism
DX: E04.1 Nontoxic single thyroid nodule (principal)
CPT/HCPCS: 76536

== ENCOUNTER → 2023-05-17 | Outpatient (CLI) | payer MEDICARE, BC ==
[2023-05-17 16:01] LABS: T4, Free (Free Thyroxine) 1.11 ng/dL (0.80-1.80)
== END | disposition home or self-care (01) ==
LOC: LABWHC1 12:09
PROVIDERS: ATTEND Internal Medicine Endocrinology, Diabetes & Metabolism
DX: E04.2 Nontoxic multinodular goiter (principal)
CPT/HCPCS: 36415; 84439; 84443